=== PATIENT | female | born 1975 | race Caucasian/White ===

== ENCOUNTER 2024-04-30 06:33 | Emergency (ER) | payer SELFPAY ==
[~2024-04-30] VITALS: Ht 167.6 cm; Wt 73.0 kg
[2024-04-30 06:36] VITALS: BP 110/63; PULSE 105; RESP 16; TEMP 97.4; O2SAT 97
[2024-04-30] MEDS ORDERED: ZIPRASIDONE MESYLATE 20MG/VIAL IM ONE (06:45)
[2024-04-30] MEDS ORDERED: DIPHENHYDRAMINE 50MG/ML VIAL IM PRN (06:45)
[2024-04-30] MEDS ORDERED: ZIPRASIDONE MESYLATE 20MG/VIAL IM NR (07:00)
== END 2024-04-30 06:54 | disposition left against medical advice (07) ==
LOC: ER 06:41
DX: R51.9 Headache, unspecified (principal); Z53.21 Procedure and treatment not carried out due to patient leaving prior to being seen by health care provider
CPT/HCPCS: J1200; J3486

== ENCOUNTER 2025-04-14 00:32 | Emergency (ER) | payer OTHER ==
[~2025-04-14] VITALS: Ht 170.2 cm; Wt 73.0 kg
[2025-04-14 00:37] VITALS: O2SAT 100
[2025-04-14] MEDS: ACETAMINOPHEN 325MG TABLET PO ONE (01:18)
[2025-04-14] MEDS ORDERED: ACET-2708 MT (02:19)
[2025-04-14 03:48] VITALS: BP 138/88; PULSE 67; RESP 18; TEMP 36.7; O2SAT 100
== END 2025-04-14 06:33 | disposition home or self-care (01) ==
LOC: ER 00:32
DX: M79.604 Pain in right leg (principal); M79.605 Pain in left leg; B07.0 Plantar wart; F31.9 Bipolar disorder, unspecified; Z88.1 Allergy status to other antibiotic agents
CPT/HCPCS: 73630; 99283